=== PATIENT | male | born 1955 | race Caucasian/White ===

== ENCOUNTER 2020-01-09 16:34 | Emergency (ER) | payer OTHER ==
[~2020-01-09] VITALS: Ht 190.5 cm; Wt 88.0 kg
[2020-01-09 16:38] VITALS: BP_SYST 157
--- NOTE | 2020-01-09 16:43 | NUR ---
Patient triaged and placed on wall. VSS and patient appears in no acute distress at this time. Accompanied by salvage worker, awaiting available bed, and MD notified of need for MSE.
--- NOTE | 2020-01-09 18:18 | NUR ---
placed in bed 6
[2020-01-09 18:44] LABS: BASOPHILS % (AUTO) 0.4 % (0.0-2.0); EOSINOPHILS # (AUTO) 0.1 K/uL (0.0-0.4); EOSINOPHILS % (AUTO) 0.7 % (0.0-4.0); HEMATOCRIT 41.5 % (36-54); HEMOGLOBIN 14.2 g/dL (14.0-18.0); LYMPHOCYTES % (AUTO) 9.1 % (20.5-51.5); MEAN CORPUSCULAR HEMOGLOBIN 31 pg (27-31); MEAN CORPUSCULAR HGB CONC 34 % (32-36); MEAN CORPUSCULAR VOLUME 89 fL (79.0-98.0); MONOCYTES # (AUTO) 0.4 K/uL (0.0-1.0); MONOCYTES % (AUTO) 3.7 % (1.7-9.3); NEUTROPHILS # (AUTO) 9.1 K/uL (1.8-7.7); NEUTROPHILS % (AUTO) 86.1 % (40.0-70.0); PLATELET COUNT (AUTO) 197 K/uL (130-430); RED BLOOD CELL COUNT(AUTO) 4.65 MIL/uL (4.2-6.2); RED CELL DISTRIBUTION WIDTH 12.9 % (9.0-15.0); WHITE BLOOD COUNT (AUTO) 10.6 K/uL (4.8-10.8)
[2020-01-09 18:55] LABS: ANION GAP 9 (5-15); CALCIUM 9.3 mg/dL (8.4-11.0); CHLORIDE 106 mmol/L (98-107); CREATININE 1.13 mg/dL (0.55-1.30); GLUCOSE 95 mg/dL (70-99); SODIUM SERUM 141 mmol/L (136-145); UREA NITROGEN, BLOOD 23 mg/dL (8-21)
[2020-01-09 18:56] LABS: GFR AFRICAN AMERICAN 83 mL/min (>90)
[2020-01-09 18:59] LABS: PROTHROMBIN TIME 10.2 SECS (9.5-12.5)
[2020-01-09 19:01] LABS: ALANINE AMINOTRANSFERASE 27 U/L (12-78); ALBUMIN 4.1 g/dL (3.4-4.8); ALCOHOL, BLOOD < 3 mg/dL (<10); ASPARTATE AMINOTRANSFERASE 19 U/L (10-37); TOTAL BILIRUBIN 0.6 mg/dL (0.0-1.0)
--- NOTE | 2020-01-09 19:18 | NUR ---
PT BIB ALS A&O X4 FROM HOME POST FALL. PT REPORTS HE WAS SITTING AT KITCHEN TABLE WHEN ALL OF A SUDDEN HE FELL OVER AND HIT HIS HEAD. PT STATES HE BELIEVES HIS SUGARS GOT LOW CAUSING HIM TO FALL. PT HAS A HEAD LACERATION TO FRONT RIGHT PART OF HEAD. PT DENIES NAUSEA, VOMITING, PAIN, BLURRY VISION, DIZZINESS.
[2020-01-09 19:48] LABS: BILIRUBIN,URINE NEGATIVE (NEGATIVE); BLOOD, URINE NEGATIVE (NEGATIVE); CLARITY/URINE CLEAR (CLEAR); COLOR,URINE YELLOW (YELLOW); GLUCOSE,URINE NEGATIVE (NEGATIVE); KETONES,URINE 1+ (NEGATIVE); LEUKOCYTE ESTERASE ,URINE NEGATIVE (NEGATIVE); NITRITE, URINE NEGATIVE (NEGATIVE); PROTEIN URINE 2+ (NEGATIVE); UROBILINOGEN,URINE 0.2 (0.2-1.0)
[2020-01-09 19:57] LABS: BACTERIA,URINE None Seen /HPF (None Seen); MUCUS,URINE None Seen /LPF (None Seen); RBC,URINE NONE SEEN /HPF (0-3); WBC,URINE 0-3 /HPF (0-3)
[2020-01-09 20:11] LABS: BARBITURATE, URINE NEGATIVE (NEG <=200); BENZODIAZEPINE, URINE NEGATIVE (NEG <=150); CANNABINOID, URINE NEGATIVE (NEG <=50); COCAINE, URINE NEGATIVE (NEG <=150); METHAMPHETAMINES SCREEN,URINE NEGATIVE (NEG <=500); OPIATE, URINE NEGATIVE (NEG <=100); PHENCYCLIDINE SCREEN,URINE NEGATIVE (NEG <=25); UR TRICYCLIC ANTIDEPRESSANTS NEGATIVE (NEG <=300); URINE AMPHETAMINE NEGATIVE (NEG <=500); URINE METHADONE NEGATIVE (NEG <=200); URINE OXYCODONE SCREEN NEGATIVE (NEG <=100); URINE PROPOXYPHENE SCREEN NEGATIVE (NEG <=300)
[2020-01-09] MEDS ORDERED: LIDOCAINE/EPI 1% 1:100000 20 ML VIAL INJ ONE ×2 (20:25→20:30)
[2020-01-09] MEDS ORDERED: BACITRACIN 1 GM OINT TP ONE (20:30)
--- NOTE | 2020-01-09 20:40 | NUR ---
Dr. boswell at bedside for laceration repair.
--- NOTE | 2020-01-09 21:10 | NUR ---
Patient has a 1.5 cm SCALP FLAP laceration to RIGHT MIDLINE HEAD. Dr. OHARA applied 5 BRYCE using sterile technique. Edges well approximated. Site cleansed with NORMAL SALINE WITH IODINE. Dressing of NONADHERENT applied to site. No bleeding noted. Pt tolerated well.
--- NOTE | 2020-01-09 21:27 | NUR ---
CALLED [facility]. SHE WILL BE COMING TO PAIN MANAGEMENT SPECIALIST PATIENT ONCE DISCHARGED.
[2020-01-09 21:46] VITALS: BP_SYST 140
== END 2020-01-09 21:48 | disposition home or self-care (01) ==
LOC: SED 16:34
DX: S01.01XA Laceration without foreign body of scalp, initial encounter (principal); R55 Syncope and collapse; E11.65 Type 2 diabetes mellitus with hyperglycemia; E78.00 Pure hypercholesterolemia, unspecified; W07.XXXA Fall from chair, initial encounter; Y93.89 Activity, other specified; Y92.89 Other specified places as the place of occurrence of the external cause; Y99.8 Other external cause status
CPT/HCPCS: 12002; 36415; 70450; 71045; 76376; 80053; 80307; 81000; 82962; 84484; 85025; 85610; 85730; 93005; 99285; G0482